=== PATIENT | male | born 1955 | race Caucasian/White ===

== ENCOUNTER 2017-11-21 10:11 | Emergency (ER) | payer BC ==
[~2017-11-21] VITALS: Ht 182.9 cm; Wt 100.0 kg
[~2017-11-21 10:11] MED LIST: AMOX/K CLAV875 M1 PO; ASPIRIN EC81 MG PO; ASPIRIN LOW81 M1 PO; CIPRO500 MG PO; CLARITHROMYC500 MG PO; COLCHICINE PO; DEPO-MEDROL40 MG/ML IM; DEPO-MEDROL80 MG/ML IM; FLONASE NASAL50 MCG; HYDROXYZ HCL25 MG PO; INDOMETHACIN50 MG PO; KEFLEX500 MG PO; KENALOG-4040 MG/ML IA; KETOROLAC60 MG/2 ML IJ; LOTENSIN10 MG PO; MEDDOSEPAK PO; MITIGARE0.6 MG PO; SOLU-MEDROL125 MG IM; allo PO
[2017-11-21] MEDS ORDERED: TOPROL XL50 MG PO (10:20)
[2017-11-21 11:35] VITALS: BP 108/70
== END 2017-11-21 11:55 | disposition home or self-care (01) | DRG 948 ==
LOC: ED 10:11
DX: G89.18 Other acute postprocedural pain (principal); Z98.890 Other specified postprocedural states